=== PATIENT | female | born 1955 | race Caucasian/White ===

== ENCOUNTER → 2016-06-24 | Outpatient (CLI) | payer BC ==
[~2016-06-24] MED LIST: ASPEC81 PO; ATV5 PO; CHOL100010 PO; CHOL100027 PO; CITA40TA4 PO; CYAN500T PO; FIBER PO; LACT1CAP6 PO; LORA-741 PO; METO50TA7 PO; PRLSR20 PO; RANI150T3 PO
--- NOTE | 2016-06-24 17:12 | MAMMOGRAPHY REPORT ---
BILATERAL DIGITAL SCREENING MAMMOGRAM TOMOSYNTHESIS WITH CAD: 06/24/2016 CLINICAL HISTORY: Asymptomatic. Personal history of breast cancer. TECHNIQUE: Breast tomosynthesis in addition to standard 2D mammography was performed. Current study was also evaluated with a Computer Aided Detection (CAD) system. COMPARISON: Comparison is made to exams dated: 06/13/2014 mammogram, 06/19/2015 mammogram, 06/07/2013 m ammogram - [facility], 10/18/2008, 07/31/2009 breast MRI - Outside MRI, and 05/21/2010 mammogram - [facility]. BREAST COMPOSITION: The tissue of both breasts is heterogeneously dense, which may obscure small ma sses. FINDINGS: There is expected architectural distortion at the site of prior lumpectomy in the upper ou ter posterior left breast. There are also benign-appearing calcifications within the left breast. No new suspicious mass, architectural distortion or cluster of microcalcifications is seen. IMPRESSION: ACR BI-RADS CATEGORY 1: NEGATIVE There is no mammographic evidence of malignancy. A 1 year screening mammogram is recommended. The p atient will receive written notification of the results. Approximately 10% of breast cancers are not detected with mammography. A negative mammographic repor t should not delay biopsy if a clinically suggestive mass is present. Julianna Wallace M.D. ay/:06/24/2016 15:29:31 Talent Development Specialist: Marysol JUDD)(Bud), [facility] letter sent: Normal 1/2 BI-RADS Code: ACR BI-RADS Category 1: Negative
== END | disposition home or self-care (01) ==
LOC: C.MAMM 12:53
PROVIDERS: ATTEND Internal Medicine Geriatric Medicine
DX: Z12.31 Encounter for screening mammogram for malignant neoplasm of breast (principal); Z85.3 Personal history of malignant neoplasm of breast; Z08 Encounter for follow-up examination after completed treatment for malignant neoplasm

== ENCOUNTER → 2017-01-14 | Outpatient (CLI) | payer BC ==
[2017-01-14 11:02] LABS: BASO % 1.1 %; BASO ABS # 0.07 K/uL (0-0.2); COMPLETE YES; EOS % 1.5 %; HEMATOCRIT 43.5 % (37-47); IG% 0.6 %; LYMPH % 37.9 %; LYMPH ABS # 2.34 K/uL (1.2-3.4); MEAN CELL VOLUME 89.7 fL (80-100); MEAN CORPUSCULAR HEMOGLOBIN 30.5 pg (25-34); MEAN PLATELET VOLUME 9.8 fL (7.4-10.4); NEUT % 51.9 %; PLATELET COUNT 218 K/uL (130-400); RED BLOOD COUNT 4.85 M/uL (4.2-5.4); WHITE BLOOD COUNT 6.17 K/uL (4.8-10.8)
[2017-01-14 11:45] LABS: ALT/SGPT 20 U/L (12-78); AST/SGOT 12 U/L (15-37); BLOOD UREA NITROGEN 16 mg/dl (7-18); BUN/CREATININE RATIO 17.8 (10-20); CALCIUM 8.8 mg/dl (8.5-10.1); CARBON DIOXIDE 27 mmol/L (21-32); CHLORIDE 105 mmol/L (98-107); GLUCOSE 94 mg/dl (70-99); POTASSIUM 4.3 mmol/L (3.5-5.1); SODIUM 138 mmol/L (136-145)
[2017-01-14 11:56] LABS: ALKALINE PHOSPHATASE 77 U/L (45-117); CHOLESTEROL 254 mg/dl (0-200); CHOLESTEROL/HDL RATIO 3.3; HDL CHOLESTEROL 78 mg/dl; LDL CHOLESTEROL CALCULATED 146 mg/dl; TRIGLYCERIDES 151 mg/dl (0-150); VERY LOW DENSITY LIPOPROT CALC 30 mg/dl
== END | disposition home or self-care (01) ==
LOC: C.LABBC 08:57
PROVIDERS: ATTEND Internal Medicine Geriatric Medicine
DX: Z00.00 Encounter for general adult medical examination without abnormal findings (principal); F41.8 Other specified anxiety disorders; G62.9 Polyneuropathy, unspecified; M47.812 Spondylosis without myelopathy or radiculopathy, cervical region; Z85.3 Personal history of malignant neoplasm of breast

== ENCOUNTER 2017-02-07 14:15 | Observation (INO) | payer BC ==
[~2017-02-07] VITALS: Ht 160 cm; Wt 66.4 kg
[~2017-02-07 14:15] MED LIST changes: -ASPEC81 PO; -CHOL100027 PO; -FIBER PO; -LORA-741 PO; -METO50TA7 PO; -PRLSR20 PO
[2017-02-07] MEDS ORDERED: SODIUM CHLORIDE 0.9% 1000ML 1,000 ML IV STA (14:33)
--- NOTE | 2017-02-07 14:49 | DIAGNOSTIC IMAGING REPORT ---
CHEST ONE VIEW PORTABLE CLINICAL HISTORY: CHEST PAIN dyspnea COMPARISON STUDY: 06/06/2008 FINDINGS: The bones soft tissues and hemidiaphragms are normal. The cardiomediastinal silhouette is normal. The lungs are clear. The pulmonary vasculature is normal. IMPRESSION: Negative chest. The above report was generated using voice recognition software. It may contain grammatical, syntax or spelling errors. Electronically signed by: Dale Giang M.D. 02/07/2017 2:48 PM Dictated Date/Time: 02/07/2017 2:48 PM
[2017-02-07] MEDS ORDERED: THIAMINE HCL 100 MG/ML 2 ML VIAL IV STA (15:00)
[2017-02-07 15:12] LABS: PARTIAL THROMBOPLASTIN RATIO 0.9; PROTHROMBIN TIME (PATIENT) 10.3 SECONDS (9.0-12.0)
[2017-02-07] MEDS ORDERED: FIBER PO (15:18)
[2017-02-07] MEDS ORDERED: LORA-741 PO (15:18)
[2017-02-07] MEDS ORDERED: PRLSR20 PO (15:18)
[2017-02-07] MEDS ORDERED: CHOL100027 PO (15:18)
[2017-02-07 15:19] LABS: BASO % 0.4 %; BASO ABS # 0.03 K/uL (0-0.2); COMPLETE YES; EOS % 1.1 %; HEMATOCRIT 41.5 % (37-47); IG% 0.3 %; LYMPH % 28.1 %; LYMPH ABS # 1.99 K/uL (1.2-3.4); MEAN CELL VOLUME 89.4 fL (80-100); MEAN CORPUSCULAR HEMOGLOBIN 31.3 pg (25-34); MEAN CORPUSCULAR HGB CONC 34.9 g/dl (32-36); MEAN PLATELET VOLUME 9.6 fL (7.4-10.4); MONO % 9.9 %; NEUT % 60.2 %; PLATELET COUNT 187 K/uL (130-400); RED BLOOD COUNT 4.64 M/uL (4.2-5.4); WHITE BLOOD COUNT 7.08 K/uL (4.8-10.8)
[2017-02-07 15:25] LABS: ALT/SGPT 22 U/L (12-78); BLOOD UREA NITROGEN 18 mg/dl (7-18); CALCIUM 9.1 mg/dl (8.5-10.1); CARBON DIOXIDE 25 mmol/L (21-32); CHLORIDE 105 mmol/L (98-107); GLUCOSE 137 mg/dl (70-99); POTASSIUM 4.3 mmol/L (3.5-5.1); SODIUM 140 mmol/L (136-145)
[2017-02-07 15:34] LABS: ALKALINE PHOSPHATASE 83 U/L (45-117); AST/SGOT 19 U/L (15-37); CKMB/CK RATIO 1.2 (0-3.0)
--- NOTE | 2017-02-07 16:02 | EMERGENCY ROOM VISIT NOTE ---
History Report prepared by Will: Viktoria Duran Under the Supervision of: Dr. Gonzalez Gomes D.O. First contact with patient: 14:21 Chief Complaint: CHEST PAIN Stated Complaint: PULSE 148, IRREGULAR, DIZZY,CHEST PAIN Nursing Triage Summary: triage note: Pt reports for the past 30 min she has felt dizzy, nauseated and mid chest pain. pt reports she took her pulse at home and it was 148. History of Present Illness The patient is a 61 year old female who presents to the Emergency Room with complaints of an episode chest pain starting prior to arrival. The patient reports that her day started out relaxing. She reports that while in the kitchen she started to feel her heart racing and a lump in her throat. She states that the episode lasted for half an hour. She reports that she took her blood pressure and pulse. She reports that her blood pressure was normal and that her pulse was 148. She states that she had one episode a few weeks ago where her pulse was 125. She notes when these episodes happen she becomes nauseated, dizzy, and short of breath. The patient denies swelling in legs, vomiting, recent sickness, diarrhea, fevers, cough, and ever having a stress test done before. The patient notes that after the first episode she called her PCP who wanted her to be fitted with a Holter monitor, but couldn't get someone to cover her for work. The patient currently rates her pain as a 6/10 in severity. Source of History: patient Onset: prior to arrival Position: chest Symptom Intensity: 6/10 Quality: other ("heart racing") Timing: other (episode) Associated Symptoms: + SOB, + nausea, No fevers, No cough, No vomiting, No diarrhea Note: The patient complains of feeling like there is a lump in her throat and dizziness. The patient denies recent sickness and swelling in her legs. Review of Systems See HPI for pertinent positives & negatives. A total of 10 systems reviewed and were otherwise negative. Past Medical & Surgical Medical Problems: (1) Acid reflux (2) Anxiety (3) Depression (4) GERD (gastroesophageal reflux disease) (5) Heart disease (6) HX: breast cancer (7) IBS (irritable bowel syndrome) Surgical Problems: (1) History of lumpectomy (2) IBS (irritable bowel syndrome) (3) S/P appendectomy (4) S/P tubal ligation Family History Cancer Hypertension Social History Smoking Status: Never Smoker Alcohol Use: occasionally Marital Status: Housing Status: lives with significant other Occupation Status: employed Current/Historical Medications Scheduled Cholecalciferol (Vitamin D 1000 Unit), 1,000 INTER.UNIT PO DAILY Citalopram (Citalopram Hydrobromide), 40 MG PO HS Cyanocobalamin (Vitamin B-12), 500 MCG PO HS Fiber Laxative (Fiber Laxative), 2 TABS PO HS Lactobacillus (Probiotic), 2 CAP PO HS Omeprazole (Prilosec), 20 MG PO HS Scheduled PRN Lorazepam (Ativan), 0.5 MG PO BID PRN for Anxiety and/or Sedation Allergies Coded Allergies: Buspirone (Verified Allergy, Intermediate, increase heart rate, 02/07/17) Venlafaxine (Verified Allergy, Intermediate, increase blood pressure, 02/07) Meperidine (Verified Allergy, Unknown, 11/10/15) Oxycodone (Verified Allergy, Unknown, 11/10/15) Codeine (Verified Adverse Reaction, Unknown, MAKES NAUSEA, 11/10/15) Physical Exam Vital Signs Date Time Temp Pulse Resp B/P (MAP) Pulse Ox O2 Delivery O2 Flow Rate FiO2 02/07/17 16:02 127/83 02/07/17 16:00 94 25 02/07/17 15:55 93 16 02/07/17 15:50 97 19 02/07/17 15:45 95 16 02/07/17 15:40 94 17 02/07/17 15:35 96 18 02/07/17 15:30 95 18 02/07/17 15:29 96/67 96 Room Air 02/07/17 15:29 85 02/07/17 15:15 141 18 02/07/17 15:10 129 17 02/07/17 15:05 144 18 02/07/17 15:00 145 20 02/07/17 14:58 151 02/07/17 14:55 131 23 02/07/17 14:44 96 Room Air 02/07/17 14:44 96 Room Air 02/07/17 14:44 112/80 02/07/17 14:18 36.5 106 18 118/76 96 Room Air Physical Exam GENERAL: Patient is awake, alert, and in no acute distress. Patient is resting comfortably and showing no signs of anxiety EYES: The conjunctivae are clear. The pupils are round and reactive. EARS, NOSE, MOUTH AND THROAT: The nose is without any evidence of any deformity. Mucous membranes are moist tongue is midline NECK: The neck is nontender and supple. RESPIRATORY: Normal respiratory effort is noted there is no evidence of wheezing rhonchi or rales CARDIOVASCULAR: Regular rate and rhythm noted there no murmurs rubs or gallops normal S1 normal S2 GASTROINTESTINAL: The abdomen is soft. Bowel sounds are present in all quadrants. Abdomen is nontender MUSCULOSKELETAL/EXTREMITIES: There is no evidence of gross deformity full range of motion is noted in the hips and shoulders SKIN: There is no obvious evidence of any rash. There are no petechiae, pallor or cyanosis noted. NEUROLOGIC: Patient is awake alert and oriented x3. Medical Decision & Procedures ER Provider Diagnostic Interpretation: Radiology results as stated below per my review and radiologist interpretation: CHEST ONE VIEW PORTABLE CLINICAL HISTORY: CHEST PAIN dyspnea COMPARISON STUDY: 06/06/2008 FINDINGS: The bones soft tissues and hemidiaphragms are normal. The cardiomediastinal silhouette is normal. The lungs are clear. The pulmonary vasculature is normal. IMPRESSION: Negative chest. The above report was generated using voice recognition software. It may contain grammatical, syntax or spelling errors. Electronically signed by: Dale Giang M.D. 02/07/2017 2:48 PM Dictated Date/Time: 02/07/2017 2:48 PM Laboratory Results 02/07/17 14:45 Red Blood Count 4.64, Mean Corpuscular Volume 89.4, Mean Corpuscular Hemoglobin 31.3, Mean Corpuscular Hemoglobin Concent 34.9, Mean Platelet Volume 9.6, Neutrophils (%) (Auto) 60.2, Lymphocytes (%) (Auto) 28.1, Monocytes (%) (Auto) 9.9, Eosinophils (%) (Auto) 1.1, Basophils (%) (Auto) 0.4, Neutrophils # (Auto) 4.26, Lymphocytes # (Auto) 1.99, Monocytes # (Auto) 0.70, Eosinophils # (Auto) 0.08, Basophils # (Auto) 0.03 02/07/17 14:45 Test 02/07/17 14:45 White Blood Count 7.08 K/uL (4.8-10.8) Red Blood Count 4.64 M/uL (4.2-5.4) Hemoglobin 14.5 g/dL (12.0-16.0) Hematocrit 41.5 % (37-47) Mean Corpuscular Volume 89.4 fL (80-100) Mean Corpuscular Hemoglobin 31.3 pg (25-34) Mean Corpuscular Hemoglobin Concent 34.9 g/dl (32-36) Platelet Count 187 K/uL (130-400) Mean Platelet Volume 9.6 fL (7.4-10.4) Neutrophils (%) (Auto) 60.2 % Lymphocytes (%) (Auto) 28.1 % Monocytes (%) (Auto) 9.9 % Eosinophils (%) (Auto) 1.1 % Basophils (%) (Auto) 0.4 % Neutrophils # (Auto) 4.26 K/uL (1.4-6.5) Lymphocytes # (Auto) 1.99 K/uL (1.2-3.4) Monocytes # (Auto) 0.70 K/uL (0.11-0.59) Eosinophils # (Auto) 0.08 K/uL (0-0.5) Basophils # (Auto) 0.03 K/uL (0-0.2) RDW Standard Deviation 42.3 fL (36.4-46.3) RDW Coefficient of Variation 13.0 % (11.5-14.5) Immature Granulocyte % (Auto) 0.3 % Immature Granulocyte # (Auto) 0.02 K/uL (0.00-0.02) Prothrombin Time 10.3 SECONDS (9.0-12.0) Prothromb Time International Ratio 1.0 (0.9-1.1) Activated Partial Thromboplast Time 24.2 SECONDS (21.0-31.0) Partial Thromboplastin Ratio 0.9 Anion Gap 10.0 mmol/L (3-11) Est Creatinine Clear Calc Drug Dose 46.2 ml/min Estimated GFR () 57.3 Estimated GFR (Non- 49.4 BUN/Creatinine Ratio 15.0 (10-20) Calcium Level 9.1 mg/dl (8.5-10.1) Magnesium Level 2.0 mg/dl (1.8-2.4) Total Bilirubin 0.4 mg/dl (0.2-1) Direct Bilirubin 0.1 mg/dl (0-0.2) Aspartate Amino Transf (AST/SGOT) 19 U/L (15-37) Alanine Aminotransferase (ALT/SGPT) 22 U/L (12-78) Alkaline Phosphatase 83 U/L (45-117) Total Creatine Kinase 130 U/L (26-192) Creatine Kinase MB 1.6 ng/ml (0.5-3.6) Creatine Kinase MB Ratio 1.2 (0-3.0) Troponin I < 0.015 ng/ml (0-0.045) Total Protein 7.5 gm/dl (6.4-8.2) Albumin 3.9 gm/dl (3.4-5.0) Lipase 278 U/L (73-393) Thyroid Stimulating Hormone (TSH) 1.160 uIu/ml (0.300-4.500) Free Thyroxine 0.87 ng/dl (0.80-1.60) Hepatitis C Antibody Screen NEG (NEG) Laboratory results per my review. Medications Administered Medications (Trade) Dose Ordered Sig/Shira Route Start Time Stop Time Status Last Admin Dose Admin Sodium Chloride 1,000 ml @ 999 mls/hr Q1H1M STAT IV 02/07/17 14:33 02/07/17 15:33 DC 02/07/17 14:52 999 MLS/HR Thiamine HCl (Vitamin B-1 Inj) 100 mg NOW STAT IV 02/07/17 15:00 02/07/17 15:01 DC 02/07/17 15:23 100 MG ECG Indication: chest pain Rate (beats per minute): 99 Rhythm: normal sinus Findings: T-wave inversion (Anterior, Lateral), no ectopy Comparison ECG Date: 02/20/2013 Change: T wave inversions are new from the prior. Repeat EKG: Atrial fibrillation with rapid ventricular response, rate 156, diffuse ST and T wave abnormalities noted. Atrial fibrillation new compared to earlier tracing. ED Course 1432: The patient was evaluated in room C6. A complete history and physical examination were performed. 1433: Ordered NSS 1000 ml @ 999 mls/hr IV. 1500: Ordered Thiamine HCl 100 mg IV. 1553: I discussed the patient's case with Dr. Link. The patient will be evaluated for further management. Medical Decision Etiologies such as cardiac ischemia, aortic dissection, pulmonary embolism, pneumonia, pneumothorax, musculoskeletal, infections, pericarditis, myocarditis , esophageal rupture, gastrointestinal, as well as others were entertained. Nursing notes reviewed. The patient is a 61-year-old female who presented to the emergency department for evaluation of palpitations and chest discomfort. The patient was found have T-wave abnormalities in the lateral leads compared to her previous EKG. She also had episodes of atrial fibrillation with rapid ventricular response while she was in the emergency department. The patient was treated with IV fluids in the emergency department. I discussed the patient's laboratory and radiographic studies with her. Given her abnormal EKG I also discussed her case with the on- call [facility] hospitalist. They've agreed to evaluate the patient in the emergency department for further management and disposition. Consults Time Called: 1550 Consulting Physician: Dr. Link Returned Call: [phone] I discussed the patient's case with Dr. Link. The patient will be evaluated for further management. Impression Primary Impression: Heart palpitations Additional Impressions: Rapid atrial fibrillation Abnormal EKG Atrial fibrillation with rapid ventricular response Chest pain Scribe Attestation The scribe's documentation has been prepared under my direction and personally reviewed by me in its entirety. I confirm that the note above accurately reflects all work, treatment, procedures, and medical decision making performed by me. Departure Information Dispostion Being Evaluated By Hospitalist Referrals Juan Dorsey M.D. (PCP) Patient Instructions My [facility] [address] Problem Qualifiers Additional Impressions: Chest pain Chest pain type: unspecified Qualified Codes: R07.9 - Chest pain, unspecified
[2017-02-07] MEDS ORDERED: ONDANSETRON INJ 2 MG/ML 2 ML VIAL IV PRN (16:15)
[2017-02-07] MEDS ORDERED: ACETAMINOPHEN 325 MG TAB PO PRN (16:15)
--- NOTE | 2017-02-07 16:26 | History and Physical ---
History & Physical Date & Time of Service: Feb 07, 2017 at 16:17 Chief Complaint: Pulse 148, Irregular, Dizzy,Chest Pain Primary Care Physician: Juan Dorsey M.D. History of Present Illness Source: patient Pt is a 61 yo female who presents to the ER with complaints of an episode of chest pain starting prior to arrival. Pt has no known medical or cardiac hx. Pt reports she felt her heart racing this and sensation of a lump in her throat. Episode lasted for about an hr. She reports an episode similar to this earlier this month. She notes when these episodes happen she becomes nauseated, dizzy, and short of breath. The patient denies swelling in legs, vomiting, recent sickness, diarrhea, fevers, cough, and ever having a stress test done before. Past Medical/Surgical History Medical Problems: (1) Acid reflux Status: Chronic (2) Anxiety Status: Chronic (3) Depression Status: Chronic (4) Heart disease Status: Chronic Surgical Problems: (1) History of lumpectomy Status: Resolved (2) IBS (irritable bowel syndrome) Status: Chronic (3) S/P appendectomy Status: Resolved (4) S/P tubal ligation Status: Resolved Family History Cancer Hypertension Social History Smoking Status: Never Smoker Smokeless Tobacco Use: No Alcohol Use: socially Drug Use: none Marital Status: Occupational Status: employed Immunizations History of Influenza Vaccine: Yes Influenza Vaccine Date: Feb 15, 2008 History of Tetanus Vaccine?: PT DOES NOT REMEMBER LAST VACCINE DOSE History of Pneumococcal: No History of Hepatitis B Vaccine: PT RECEIVED IN THE -EMPLOYED AT THIS FACILIT Multi-Drug Resistant Organisms History of MDRO: No Allergies Coded Allergies: Buspirone (Verified Allergy, Intermediate, increase heart rate, 02/07/17) Venlafaxine (Verified Allergy, Intermediate, increase blood pressure, 02/07) Meperidine (Verified Allergy, Unknown, 11/10/15) Oxycodone (Verified Allergy, Unknown, 11/10/15) Codeine (Verified Adverse Reaction, Unknown, MAKES NAUSEA, 11/10/15) Home Medications Scheduled Cholecalciferol (Vitamin D 1000 Unit), 1,000 INTER.UNIT PO DAILY Citalopram (Citalopram Hydrobromide), 40 MG PO HS Cyanocobalamin (Vitamin B-12), 500 MCG PO HS Fiber Laxative (Fiber Laxative), 2 TABS PO HS Lactobacillus (Probiotic), 2 CAP PO HS Omeprazole (Prilosec), 20 MG PO HS Scheduled PRN Lorazepam (Ativan), 0.5 MG PO BID PRN for Anxiety and/or Sedation Review of Systems Constitutional: No fever, No chills, No sweats, No weight loss, No weakness Respiratory: No cough, No sputum, No wheezing, No shortness of breath, No dyspnea on exertion Cardiovascular: No chest pain, No orthopnea, No PND, No edema Abdomen: No pain, No nausea, No vomiting, No diarrhea Musculoskeletal: No joint pain, No muscle pain, No swelling, No calf pain Genitourinary - Female: No dysuria, No urinary frequency, No urinary urgency, No urinary incontinence Neurologic: No memory loss, No paralysis, No weakness, No numbness/tingling Psychiatric: No depression symptoms, No anhedonism, No anxiety, No insomnia Endocrine: No fatigue, No excessive thirst Integumentary: No rash, No itch Physical Exam Vital Signs Date Time Temp Pulse Resp B/P (MAP) Pulse Ox O2 Delivery O2 Flow Rate FiO2 02/07/17 16:02 127/83 02/07/17 16:00 94 25 02/07/17 15:55 93 16 02/07/17 15:50 97 19 02/07/17 15:45 95 16 02/07/17 15:40 94 17 02/07/17 15:35 96 18 02/07/17 15:30 95 18 02/07/17 15:29 96/67 96 Room Air 02/07/17 15:29 85 02/07/17 15:15 141 18 02/07/17 15:10 129 17 02/07/17 15:05 144 18 02/07/17 15:00 145 20 02/07/17 14:58 151 02/07/17 14:55 131 23 02/07/17 14:44 96 Room Air 02/07/17 14:44 96 Room Air 02/07/17 14:44 112/80 02/07/17 14:18 36.5 106 18 118/76 96 Room Air General Appearance: WD/WN, no apparent distress Head: normocephalic, atraumatic Eyes: normal inspection, PERRL, EOMI, sclerae normal Neck: supple, no adenopathy, thyroid normal, no JVD Respiratory/Chest: chest non-tender, lungs clear, normal breath sounds, no respiratory distress Cardiovascular: no edema, no gallop, no JVD, + tachycardia Abdomen/GI: normal bowel sounds, non tender, soft, no organomegaly Back: normal inspection, no CVA tenderness, no muscle spasm, normal range of motion Extremities/Musculoskelatal: normal inspection, no calf tenderness, normal capillary refill, no pedal edema Neurologic/Psych: no motor/sensory deficits, alert, normal mood/affect, normal reflexes, oriented x 3 Skin: normal color, warm/dry, no rash Lymphatic: no adenopathy Diagnostics Laboratory Results Results Past 24 Hours Test 02/07/17 14:45 Range/Units White Blood Count 7.08 4.8-10.8 K/uL Red Blood Count 4.64 4.2-5.4 M/uL Hemoglobin 14.5 12.0-16.0 g/dL Hematocrit 41.5 37-47 % Mean Corpuscular Volume 89.4 80-100 fL Mean Corpuscular Hemoglobin 31.3 25-34 pg Mean Corpuscular Hemoglobin Concent 34.9 32-36 g/dl Platelet Count 187 130-400 K/uL Mean Platelet Volume 9.6 7.4-10.4 fL Neutrophils (%) (Auto) 60.2 % Lymphocytes (%) (Auto) 28.1 % Monocytes (%) (Auto) 9.9 % Eosinophils (%) (Auto) 1.1 % Basophils (%) (Auto) 0.4 % Neutrophils # (Auto) 4.26 1.4-6.5 K/uL Lymphocytes # (Auto) 1.99 1.2-3.4 K/uL Monocytes # (Auto) 0.70 0.11-0.59 K/uL Eosinophils # (Auto) 0.08 0-0.5 K/uL Basophils # (Auto) 0.03 0-0.2 K/uL RDW Standard Deviation 42.3 36.4-46.3 fL RDW Coefficient of Variation 13.0 11.5-14.5 % Immature Granulocyte % (Auto) 0.3 % Immature Granulocyte # (Auto) 0.02 0.00-0.02 K/uL Prothrombin Time 10.3 9.0-12.0 SECONDS Prothromb Time International Ratio 1.0 0.9-1.1 Activated Partial Thromboplast Time 24.2 21.0-31.0 SECONDS Partial Thromboplastin Ratio 0.9 Sodium Level 140 136-145 mmol/L Potassium Level 4.3 3.5-5.1 mmol/L Chloride Level 105 98-107 mmol/L Carbon Dioxide Level 25 21-32 mmol/L Anion Gap 10.0 3-11 mmol/L Blood Urea Nitrogen 18 7-18 mg/dl Creatinine 1.20 0.60-1.20 mg/dl Est Creatinine Clear Calc Drug Dose 46.2 ml/min Estimated GFR () 57.3 Estimated GFR (Non- 49.4 BUN/Creatinine Ratio 15.0 10-20 Random Glucose 137 70-99 mg/dl Calcium Level 9.1 8.5-10.1 mg/dl Magnesium Level 2.0 1.8-2.4 mg/dl Total Bilirubin 0.4 0.2-1 mg/dl Direct Bilirubin 0.1 0-0.2 mg/dl Aspartate Amino Transf (AST/SGOT) 19 15-37 U/L Alanine Aminotransferase (ALT/SGPT) 22 12-78 U/L Alkaline Phosphatase 83 45-117 U/L Total Creatine Kinase 130 26-192 U/L Creatine Kinase MB 1.6 0.5-3.6 ng/ml Creatine Kinase MB Ratio 1.2 0-3.0 Troponin I < 0.015 0-0.045 ng/ml Total Protein 7.5 6.4-8.2 gm/dl Albumin 3.9 3.4-5.0 gm/dl Lipase 278 73-393 U/L Thyroid Stimulating Hormone (TSH) 1.160 0.300-4.500 uIu/ml Free Thyroxine 0.87 0.80-1.60 ng/dl Impression Assessment and Plan Pt is a 61 yo female with episode of chest discomfort this afternoon and found to be in atrial fibrillation in ER New onset atrial fibrillation Pt reports stress from work, no heavy drinking hx, Mg and TSH WNL Currently in NSR Will place on observation in telemetry Will pace on ASA at this time Will obtain ECHO Cardiology consulted Hx of mitral valve prolapse Hx of breast cancer DVT ppx with lovenox VTE Prophylaxis VTE Risk Assessment Done? Y/N: Yes Risk Level: Moderate
[2017-02-07 16:28] VITALS: O2SAT 96; Ht 160 cm; Wt 66.4 kg
[2017-02-07] MEDS ORDERED: IV FLUIDS COMPLETED PRN (17:00)
[2017-02-07 19:15] VITALS: BP 121/69; PULSE 72; TEMP 36.7; O2SAT 97
[2017-02-07] MEDS ORDERED: NURSING VERBAL MED ORDER ONE ×2 (19:30→20:30)
[2017-02-07 19:38] VITALS: BP 124/73; PULSE 75; TEMP 36.5; O2SAT 95
[2017-02-07] MEDS ORDERED: LORAZEPAM 1 MG TAB PO PRN (20:30)
[2017-02-07] MEDS ORDERED: ENOXAPARIN 40 MG/0.4 ML SYR SC SCH (21:00)
[2017-02-07] MEDS ORDERED: CITALOPRAM 40 MG TAB PO SCH (21:00)
[2017-02-07] MEDS ORDERED: LACTOBACILLUS ACIDOPHILUS (FLORANEX) TAB PO SCH (21:00)
[2017-02-07] MEDS: LORAZEPAM 0.5 MG TAB PO PRN (21:20)
[2017-02-07] MEDS: SODIUM CHLORIDE 0.9% 1000ML 1,000 ML IV SCH (21:20)
[2017-02-07 23:58] VITALS: BP 119/69; PULSE 77; TEMP 36.5; O2SAT 95
[2017-02-08] VITALS (9 sets, daily range): BP systolic 127–142; BP diastolic 73–85; PULSE 73–80; TEMP 36.5–37.1; O2SAT 95–98
[2017-02-08 06:34] LABS: BLOOD UREA NITROGEN 18 mg/dl (7-18); BUN/CREATININE RATIO 19.3 (10-20); CALCIUM 8.3 mg/dl (8.5-10.1); CARBON DIOXIDE 25 mmol/L (21-32); CHLORIDE 110 mmol/L (98-107); CREATININE 0.93 mg/dl (0.60-1.20); GLUCOSE 100 mg/dl (70-99); POTASSIUM 3.8 mmol/L (3.5-5.1); SODIUM 142 mmol/L (136-145)
[2017-02-08] MEDS ORDERED: CHOLECALCIFEROL 1000 INTER.UNIT TAB PO SCH (09:00)
[2017-02-08] MEDS ORDERED: ASPIRIN 81 MG ECTAB PO SCH (09:00)
[2017-02-08] MEDS: LORAZEPAM 0.5 MG TAB PO PRN (09:26)
[2017-02-08] MEDS: SODIUM CHLORIDE 0.9% 1000ML 1,000 ML IV SCH (11:19)
--- NOTE | 2017-02-08 14:17 | ECHOCARDIOGRAM REPORT ---
*NOTICE TO RECEIVING [employer] This information is strictly Confidential and protected under [place] law. [place] law prohibits you from making any further disclosure of this information unless further disclosure is expressly permitted by the written consent of the person to whom it pertains or is authorized by law. A general authorization for the release of medical or other information is not sufficient for this purpose. Hospital accepts no responsibility if the information is made available to any other person, INCLUDING THE PATIENT. Interpretation Summary * Name: ANGELIC EMMANUEL Study Date: 02/08/2017 06:27 AM BP: 127/73 mmHg * Patient Location: HR: 73 * : 1955 (M/d/yyyy) Gender: Female Height: 63 in * Age: 61 yrs Ethnicity: CA Weight: 146 lb * Ordering Physician: Oliverio Link * Performed By: Keara Braxton * * Reason For Study: A-FIB * BSA: 1.7 m2 * -- Conclusions -- * 1. Normal LV size and wall thickness. * 2. Normal LV systolic function. LVEF 55-60%. No regional wall motion abnormalities. * 3. Normal RV size and function. * 4. Mild left atrial enlargement. * 5. Mild mitral regurgitation. * 6. Normal estimated CVP. * 7. No prior studies for comparison. Procedure Details * A complete two-dimensional transthoracic echocardiogram was performed (2D, M-mode, Doppler and color flow Doppler). Left Ventricle * The left ventricle is grossly normal size. * There is normal left ventricular wall thickness. * Ejection Fraction = 55-60%. * No regional wall motion abnormalities noted. Right Ventricle * The right ventricle is grossly normal size. * The right ventricular systolic function is normal as assessed by tricuspid annular plane systolic excursion (TAPSE) (normal >1.5 cm). Atria * The left atrium is mildly dilated. * Right atrial size is normal. * No ASD detected; PFO is not assessed. Mitral Valve * The mitral valve is grossly normal. * Mitral stenosis is absent. * There is mild mitral regurgitation. Tricuspid Valve * The tricuspid valve is not well visualized, but is grossly normal. * There is no tricuspid stenosis. * Significant tricuspid regurgitation is absent. Aortic Valve * The aortic valve opens well. * The aortic valve is tricuspid. The leaflet thickness if normal. There is no aortic stenosis, and no significant insufficiency. * No hemodynamically significant valvular aortic stenosis. * There is no significant aortic regurgitation. Pulmonic Valve * The pulmonary valve is inadequately visualized, but the Doppler data is adequate for interpretation. * There is no pulmonic valvular stenosis. * Trace pulmonic valvular regurgitation. Great Vessels * The aortic root and proximal ascending aorta are normal sized. Pericardium/Pleural * There is no pericardial effusion. Great Vessels * Normal inferior vena cava size and collapsability with sniff indicates a normal right atrial pressure of 3 mmHg MMode 2D Measurements and Calculations IVSd 1.1 cm IVSs 1.4 cm LVIDd 4.4 cm LVIDs 3.1 cm LVPWd 0.88 cm LVPWs 1.5 cm IVS/LVPW 1.2 FS 30.2 % EDV(Teich) 89.4 ml ESV(Teich) 37.9 ml EF(Teich) 57.6 % EDV(cubed) 87.3 ml ESV(cubed) 29.7 ml EF(cubed) 65.9 % % IVS thick 29.8 % % LVPW thick 75.6 % LV mass(C)d 143.8 grams LV mass(C)dI 85.0 grams/m\S\2 LV mass(C)s 157.6 grams LV mass(C)sI 93.2 grams/m\S\2 SV(Teich) 51.5 ml SI(Teich) 30.5 ml/m\S\2 SV(cubed) 57.5 ml SI(cubed) 34.0 ml/m\S\2 ACS 1.6 cm LA dimension 3.0 cm asc Aorta Diam 2.7 cm LVOT diam 1.9 cm LVOT area 2.8 cm\S\2 LVAd ap4 25.5 cm\S\2 LVLd ap4 7.4 cm EDV(MOD-sp4) 72.4 ml EDV(sp4-el) 73.9 ml LVAs ap4 15.3 cm\S\2 LVLs ap4 6.3 cm ESV(MOD-sp4) 30.4 ml ESV(sp4-el) 31.3 ml EF(MOD-sp4) 58.0 % EF(sp4-el) 57.6 % LVAd ap2 22.4 cm\S\2 LVLd ap2 6.8 cm EDV(MOD-sp2) 62.2 ml EDV(sp2-el) 62.8 ml LVAs ap2 12.5 cm\S\2 LVLs ap2 5.2 cm ESV(MOD-sp2) 26.3 ml ESV(sp2-el) 25.5 ml EF(MOD-sp2) 57.6 % EF(sp2-el) 59.5 % LVLd %diff -100 % EDV(MOD-bp) 70.7 ml LVLs %diff -22.75 % ESV(MOD-bp) 31.7 ml EF(MOD-bp) 55.2 % SV(MOD-sp4) 42.0 ml SI(MOD-sp4) 24.8 ml/m\S\2 SV(MOD-sp2) 35.8 ml SI(MOD-sp2) 21.2 ml/m\S\2 SV(MOD-bp) 39.0 ml SI(MOD-bp) 23.1 ml/m\S\2 SV(sp4-el) 42.6 ml SI(sp4-el) 25.2 ml/m\S\2 SV(sp2-el) 37.3 ml SI(sp2-el) 22.1 ml/m\S\2 Doppler Measurements and Calculations MV E max sabi 80.0 cm/sec MV A max sabi 47.6 cm/sec MV E/A 1.7 MV dec time 0.14 sec Ao V2 max 112.6 cm/sec Ao max PG 5.1 mmHg Ao max PG (full) 2.6 mmHg HARPREET(V,A) 2.0 cm\S\2 HARPREET(V,D) 2.0 cm\S\2 LV V1 max PG 2.5 mmHg LV V1 max 79.3 cm/sec MR max sabi 402.2 cm/sec MR max PG 65.1 mmHg PA V2 max 48.7 cm/sec PA max PG 0.95 mmHg PI end-d sabi 54.4 cm/sec TR max sabi 175.1 cm/sec
[2017-02-08] MEDS ORDERED: ASPEC81 PO (15:11)
[2017-02-08] MEDS ORDERED: METO50TA7 PO (15:11)
--- NOTE | 2017-02-08 15:18 | Discharge Instructions ---
Discharge Instructions Date of Service Feb 08, 2017. Admission Reason for Admission: Rapid Atrial Fibrillation Discharge Discharge Diagnosis / Problem: Rapid atrial fibrillation Discharge Goals Goal(s): Decrease discomfort, Improve disease control, Learn about illness, Diagnostic testing, Therapeutic intervention, Prevent Disease Progression Activity Recommendations Activity Limitations: resume your previous activity . Instructions / Follow-Up Instructions / Follow-Up You were admitted to [facility] due to a racing heart. You were found to be in atrial fibrillation (irregular heart beat) with RVR (fast heart rate). New medications: Toprol XL 25 mg by mouth once daily- this medication is used to keep your heart rate from going too fast Aspirin 81 mg by mouth daily- this is to prevent strokes (having a.fib puts you at risk) Continue all other regular home medications as prescribed Please follow-up with your PCP within 5-7 days- A referral has been placed; if you do not hear of an appointment in the next 24 hours, please call the office to confirm appointment. Please follow-up with Cardiology within 1 month- A referral has been placed; if you do not hear of an appointment in the next 24 hours, please call the office to confirm appointment. Please follow-up/keep all of your subspecialty appointments. Current Hospital Diet Patient's current hospital diet: Regular Diet Discharge Diet Recommended Diet: Regular Diet Procedures Procedures Performed: ECHOCARDIOGRAM Pending Studies Studies pending at discharge: no Laboratory Results Lipid Panel Test 01/14/17 09:02 Range/Units Triglycerides Level 151 H 0-150 mg/dl Cholesterol Level 254 H 0-200 mg/dl HDL Cholesterol 78 mg/dl Cholesterol/HDL Ratio 3.3 LDL Cholesterol, Calculated 146 mg/dl Medical Emergencies . Who to Call and When: Medical Emergencies: If at any time you feel your situation is an emergency, please call 911 immediately. . Non-Emergent Contact Non-Emergency issues call your: Primary Care Provider Call Non-Emergent contact if: you have a fever, your pain is not controlled, your pain is worsening, your pain is unusual for you, your pain is concerning you, you have any medication questions . . "Provider Documentation" section prepared by Chaparrita Cobb. . VTE Core Measure Inpt VTE Proph given/why not?: Enoxaparin (Lovenox)SQ
--- NOTE | 2017-02-08 15:30 | Discharge Summary ---
Discharge Summary Date of Service Feb 08, 2017. (Chaparrita Cobb, ELLIE) Discharge Summary Admission Date: Feb 07, 2017 at 16:14 Discharge Date: Feb 08, 2017 Discharge Disposition: Home Principal Diagnosis: A.fib with RVR Problems/Secondary Diagnoses: Anxiety depression h/o mitral valve prolapse h/o breast cancer GERD Immunizations: Have You Had Influenza Vaccine: Yes Influenza Vaccine Date: Feb 15, 2008 History of Tetanus Vaccine?: PT DOES NOT REMEMBER LAST VACCINE DOSE History of Pneumococcal: No History of Hepatitis B Vaccine: PT RECEIVED IN THE -EMPLOYED AT THIS FACILIT Procedures: ECHOCARDIOGRAM: Interpretation Summary * Name: ANGELIC EMMANUEL Study Date: 02/08/2017 06:27 AM BP: 127/73 mmHg * Patient Location: [facility] HR: 73 * : 1955 (M/d/yyyy) Gender: Female Height: 63 in * Age: 61 yrs Ethnicity: CA Weight: 146 lb * Ordering Physician: Oliverio Link * Performed By: Keara Braxton * * Reason For Study: A-FIB * BSA: 1.7 m2 * -- Conclusions -- * 1. Normal LV size and wall thickness. * 2. Normal LV systolic function. LVEF 55-60%. No regional wall motion abnormalities. * 3. Normal RV size and function. * 4. Mild left atrial enlargement. * 5. Mild mitral regurgitation. * 6. Normal estimated CVP. * 7. No prior studies for comparison. Procedure Details * A complete two-dimensional transthoracic echocardiogram was performed (2D, M-mode, Doppler and color flow Doppler). Left Ventricle * The left ventricle is grossly normal size. * There is normal left ventricular wall thickness. * Ejection Fraction = 55-60%. * No regional wall motion abnormalities noted. Right Ventricle * The right ventricle is grossly normal size. * The right ventricular systolic function is normal as assessed by tricuspid annular plane systolic excursion (TAPSE) (normal >1.5 cm). Atria * The left atrium is mildly dilated. * Right atrial size is normal. * No ASD detected; PFO is not assessed. Mitral Valve * The mitral valve is grossly normal. * Mitral stenosis is absent. * There is mild mitral regurgitation. Tricuspid Valve * The tricuspid valve is not well visualized, but is grossly normal. * There is no tricuspid stenosis. * Significant tricuspid regurgitation is absent. Aortic Valve * The aortic valve opens well. * The aortic valve is tricuspid. The leaflet thickness if normal. There is no aortic stenosis, and no significant insufficiency. * No hemodynamically significant valvular aortic stenosis. * There is no significant aortic regurgitation. Pulmonic Valve * The pulmonary valve is inadequately visualized, but the Doppler data is adequate for interpretation. * There is no pulmonic valvular stenosis. * Trace pulmonic valvular regurgitation. Great Vessels * The aortic root and proximal ascending aorta are normal sized. Pericardium/Pleural * There is no pericardial effusion. Great Vessels * Normal inferior vena cava size and collapsability with sniff indicates a normal right atrial pressure of 3 mmHg CHEST ONE VIEW PORTABLE CLINICAL HISTORY: CHEST PAIN dyspnea COMPARISON STUDY: 06/06/2008 FINDINGS: The bones soft tissues and hemidiaphragms are normal. The cardiomediastinal silhouette is normal. The lungs are clear. The pulmonary vasculature is normal. IMPRESSION: Negative chest. The above report was generated using voice recognition software. It may contain grammatical, syntax or spelling errors. Electronically signed by: Dale Giang M.D. 02/07/2017 2:48 PM Dictated Date/Time: 02/07/2017 2:48 PM The status of this report is Signed. Draft = Not yet reviewed or approved by Radiologist. Signed = Reviewed and approved by Radiologist. Consultations: Cardiology (Chaparrita Cobb, ELLIE) Medication Reconciliation New Medications: Metoprolol Succ (Toprol Xl) (Toprol-Xl) 50 Mg Tabcr 25 MG PO DAILY for 30 Days, #15 TAB Aspirin (Aspirin EC Low Dose) 81 Mg Ectab 81 MG PO QAM for 30 Days Continued Medications: Cholecalciferol (Vitamin D 1000 Unit) 1,000 Unit Cap 1000 INTER.UNIT PO DAILY, CAP Citalopram (Citalopram Hydrobromide) 40 Mg Tab 40 MG PO HS Cyanocobalamin (Vitamin B-12) 500 Mcg Tab 500 MCG PO HS, TAB Fiber Laxative (Fiber Laxative) Ea 2 TABS PO HS Lactobacillus (Probiotic) 1 Cap Cap 2 CAP PO HS Lorazepam (Ativan) 0.5 Mg Tab 0.5 MG PO BID PRN for Anxiety and/or Sedation, TAB Omeprazole (Prilosec) 20 Mg Capcr 20 MG PO HS, CAP Discharge Exam Review of Systems: Constitutional: No fever, No chills, No sweats, No weakness, No fatigue Respiratory: No cough, No shortness of breath, No hemoptysis Cardiovascular: No chest pain, No edema, No palpitations Abdomen: No pain, No nausea, No vomiting, No diarrhea, No constipation Musculoskeletal: No joint pain, No muscle pain, No swelling, No calf pain Genitourinary - Female: No dysuria, No hematuria Neurologic: No memory loss, No numbness/tingling Psychiatric: No depression symptoms, No anxiety Endocrine: No fatigue Hematologic / Lymphatic: No abnormal bleeding/bruising, No clotting problems , No swollen lymph nodes Physical Exam: General Appearance: no apparent distress Eyes: normal inspection, PERRL ENT: hearing grossly normal Neck: supple Respiratory/Chest: lungs clear, no respiratory distress, no accessory muscle use Cardiovascular: regular rate, rhythm Abdomen / GI: normal bowel sounds, non tender, soft Extremities: no calf tenderness, no pedal edema Neurologic/Psychiatric: alert, normal mood/affect, oriented x 3 Skin: normal color, warm/dry, no rash (Chaparrita Cobb, ELLIE) Hospital Course Admission H&P: Pt is a 61 yo female who presents to the ER with complaints of an episode of chest pain starting prior to arrival. Pt has no known medical or cardiac hx. Pt reports she felt her heart racing this and sensation of a lump in her throat. Episode lasted for about an hr. She reports an episode similar to this earlier this month. She notes when these episodes happen she becomes nauseated, dizzy, and short of breath. The patient denies swelling in legs, vomiting, recent sickness, diarrhea, fevers, cough, and ever having a stress test done before. Physical Exam Vital Signs Date Time Temp Pulse Resp B/P (MAP) Pulse Ox O2 Delivery O2 Flow Rate FiO2 02/07/17 16:02 127/83 02/07/17 16:00 94 25 02/07/17 15:55 93 16 02/07/17 15:50 97 19 02/07/17 15:45 95 16 02/07/17 15:40 94 17 02/07/17 15:35 96 18 02/07/17 15:30 95 18 02/07/17 15:29 96/67 96 Room Air 02/07/17 15:29 85 02/07/17 15:15 141 18 02/07/17 15:10 129 17 02/07/17 15:05 144 18 02/07/17 15:00 145 20 02/07/17 14:58 151 02/07/17 14:55 131 23 02/07/17 14:44 96 Room Air 02/07/17 14:44 96 Room Air 02/07/17 14:44 112/80 02/07/17 14:18 36.5 106 18 118/76 96 Room Air General Appearance: WD/WN, no apparent distress Head: normocephalic, atraumatic Eyes: normal inspection, PERRL, EOMI, sclerae normal Neck: supple, no adenopathy, thyroid normal, no JVD Respiratory/Chest: chest non-tender, lungs clear, normal breath sounds, no respiratory distress Cardiovascular: no edema, no gallop, no JVD, + tachycardia Abdomen/GI: normal bowel sounds, non tender, soft, no organomegaly Back: normal inspection, no CVA tenderness, no muscle spasm, normal range of motion Extremities/Musculoskelatal: normal inspection, no calf tenderness, normal capillary refill, no pedal edema Neurologic/Psych: no motor/sensory deficits, alert, normal mood/affect, normal reflexes, oriented x 3 Skin: normal color, warm/dry, no rash Lymphatic: no adenopathy Hospital Course: Pt is a 61 yo female with episode of chest discomfort this afternoon and found to be in atrial fibrillation in ER New onset atrial fibrillation: - Admitted to [facility] for cardiac monitoring- no acute events - Trended cardiac enzymes- negative - ECHO: 1. Normal LV size and wall thickness. 2. Normal LV systolic function. LVEF 55-60%. No regional wall motion abnormalities. 3. Normal RV size and function. 4. Mild left atrial enlargement. 5. Mild mitral regurgitation. 6. Normal estimated CVP. - TSH WNL - Consulted cardiology, appreciate recommendations -- Stable for discharge- recommend Toprol XL and ASA at discharge and f/u outpatient Anxiety/depression: Continue Ativan and Citalopram h/o mitral valve prolapse- noted h/o breast cancer- noted GERD: Resume Prilosec at discharge DVT prophylaxis: Lovenox SQ daily Dispo: Discharge to home Total Time Spent: Greater than 30 minutes This includes examination of the patient, discharge planning, medication reconciliation, and communication with other providers. (Chaparrita Cobb, TOYC) Discharge Instructions Please refer to the electronic Patient Visit Report (Discharge Instructions) for additional information. (Chaparrita Cobb, TOYC) Follow-Up Please follow-up with your PCP within 5-7 days Please follow-up with Cardiology within 1 month Please follow-up/keep all of your subspecialty appointments (Chaparrita Cobb, JOSÉ-C) I agree with the above discharge summary. I examined patient and discussed case and discharge plan with APC. My physical exam did not vary from Chaparrita's. (Arthur Valenzuela M.D.) Additional Copies To Juan Dorsey M.D.
--- NOTE | 2017-02-08 22:33 | CARDIOLOGY CONSULTATION ---
DATE OF CONSULTATION: 02/08/2017 CONSULTATION REQUESTED BY: Dr. Link. REASON FOR CONSULTATION: New onset atrial fibrillation. HISTORY OF PRESENT ILLNESS: Ms. Guerrero is a very pleasant 61-year-old woman who was admitted yesterday in the setting of palpitations, chest pain and found to be in new onset atrial fibrillation with RVR. Cardiology consulted for additional management. The patient has no prior cardiac history. She endorses one prior episode of palpitations, chest tightness occurring approximately 2-3 weeks ago while she was at work. Most recent episode occurred the day of admission she was at rest planning her grocery list when all of sudden she developed palpitations radiating up into her neck with associated chest pain, shortness of breath. Symptoms lasted for approximately an hour and a half before she contacted EMS who brought to the Emergency Department. Upon arrival, initial EKG showed sinus rhythm with ventricular rate of approximately 100 and subsequent EKG showed atrial fibrillation with RVR with ventricular rate up into the 150s. She received IV fluids and thiamine and eventually converted to normal sinus rhythm at approximately 3:00 p.m. yesterday. She has remained in sinus rhythm since that time and has had no recurrence of symptoms. The patient denies any significant alcohol or drug use. Drinks 1 cup of coffee daily. Denies any recent infection symptoms. Has does state that things have been very stressful at her work over the last month or so. PAST MEDICAL HISTORY: 1. GERD. 2. Anxiety. 3. Spastic colon/irritable bowel syndrome. PAST SURGICAL HISTORY: 1. History of lumpectomy for breast cancer status post chemo/radiation 10 years ago. 2. Status post appendectomy. 3. Tubal ligation. FAMILY HISTORY: No family history of premature coronary disease or sudden cardiac . SOCIAL HISTORY: She is a lifelong nonsmoker. Drinks socially. Denies any other drugs. She is . Her daughter works at [employer]. She is employed at [employer]. ALLERGIES: ALLERGIC TO BUSPIRONE, VENLAFAXINE, MEPERIDINE, OXYCODONE AND CODEINE. HOME MEDICATIONS: Include cholecalciferol, citalopram, vitamin B12, fiber laxative, lactobacillus, and omeprazole. REVIEW OF SYSTEMS: A 10-point review of systems completed and otherwise negative unless stated in HPI. PHYSICAL EXAMINATION: VITAL SIGNS: Temperature 36.6, pulse 77, blood pressure 141/85. Satting 96% on room air. GENERAL: The patient appears comfortable in no acute distress. HEENT: Sclerae are anicteric. Oropharynx is clear. Mucous membranes moist. NECK: Supple with no lymphadenopathy. LUNGS: Clear to auscultation bilaterally. HEART: Regular rate and rhythm with a faint 2/6 systolic ejection murmur heard best at the apex. ABDOMEN: Soft, nontender, nondistended, positive bowel sounds. EXTREMITIES: Warm. She has no significant lower extremity edema. She has intact distal pulses. SKIN: Shows no rashes or lesions. NEUROLOGIC: Nonfocal was. PSYCHIATRIC: She is alert, oriented and appropriate. LABORATORY DATA: White blood cell count was 7, hemoglobin of 14.5, platelets of 187. Sodium 142, potassium 3.8, BUN 18, creatinine 0.9. Troponins were negative x3. TSH was within normal limits. LFTs were within normal limits. Chest x-ray showed no acute cardiopulmonary process. A subsequent EKG this morning showed normal sinus rhythm with no significant ST abnormalities. Echocardiogram today showed normal LV function, EF 55-60%. Normal RV function and she had mild left atrial enlargement with mild mitral regurgitation. IMPRESSION AND PLAN: 1. New onset atrial fibrillation. 2. Mild mitral regurgitation. 3. Anxiety. 4. Irritable bowel syndrome/gastroesophageal reflux disease. The patient with a newly diagnosed paroxysmal atrial fibrillation with rapid ventricular response with heart rates up to the 160s. She converted to normal sinus rhythm yesterday without any intervention. She has remained in normal sinus rhythm since. No clear reversible triggers for current episode other than significant stress at her current work. I had a long discussion with the patient regarding nature of atrial fibrillation and options for treatment. At this time, I recommend suppression with AV asha agents with plan to start on Toprol-XL 25 mg daily. In regards to anticoagulation, the patient's CHADS2-VASc score is 1 suggesting low risk for CVA. In that setting, would recommend aspirin alone which patient was in agreement with. We will have the patient followup with cardiology clinic in the next 3-4 weeks. Thank you for allowing us to participate in the care of this patient. Please contact with any questions. JULIOCESAR
== END 2017-02-08 17:54 | disposition home or self-care (01) ==
LOC: C.EDB 14:16 → C.2E 16:14 → ENRESERV 17:08
PROVIDERS: ADMIT Hospitalist; ATTEND Hospitalist
DX: I48.91 Unspecified atrial fibrillation (principal); R94.31 Abnormal electrocardiogram [ECG] [EKG]; F32.9 Major depressive disorder, single episode, unspecified; I34.1 Nonrheumatic mitral (valve) prolapse; Z85.3 Personal history of malignant neoplasm of breast; K21.9 Gastro-esophageal reflux disease without esophagitis; K58.9 Irritable bowel syndrome, unspecified; Z90.49 Acquired absence of other specified parts of digestive tract; Z82.49 Family history of ischemic heart disease and other diseases of the circulatory system

== ENCOUNTER → 2017-06-30 | Outpatient (CLI) | payer OTHER ==
[~2017-06-30] MED LIST changes: +ASPEC81 PO; -ATV5 PO; -CHOL100010 PO; +CHOL100027 PO; +FIBER PO; +LORA-741 PO; +PRLSR20 PO; -RANI150T3 PO
--- NOTE | 2017-06-30 15:23 | MAMMOGRAPHY REPORT ---
BILATERAL DIGITAL SCREENING MAMMOGRAM TOMOSYNTHESIS WITH CAD: 06/30/2017 CLINICAL HISTORY: Asymptomatic. Personal history of breast cancer. TECHNIQUE: Breast tomosynthesis in addition to standard 2D mammography was performed. Current study was also evaluated with a Computer Aided Detection (CAD) system. COMPARISON: Comparison is made to exams dated: 06/24/2016 mammogram, 06/19/2015 mammogram, 06/13/2014 juan carlos mogram, 06/07/2013 mammogram, 05/21/2010 mammogram - [facility], and 07/31/2009 breast MRI - Outside MRI. BREAST COMPOSITION: The tissue of both breasts is heterogeneously dense, which may obscure small mas ses. FINDINGS: There is stable expected architectural distortion and surgical clips in the upper outer pos terior left breast, at the site of prior lumpectomy. There is stable asymmetry in the medial right b reast. No obvious new mass, architectural distortion or cluster of suspicious microcalcifications is seen. IMPRESSION: ACR BI-RADS CATEGORY 1: NEGATIVE There is no mammographic evidence of malignancy. A 1 year screening mammogram is recommended. The pa tient will receive written notification of the results. Approximately 10% of breast cancers are not detected with mammography. A negative mammographic report should not delay biopsy if a clinically suggestive mass is present. Julianna Wallace M.D. ay/:06/30/2017 13:17:28 [employer] Supervisor: Jennie MOLINA (R)(Bud), [facility] letter sent: Normal 1/2 BI-RADS Code: ACR BI-RADS Category 1: Negative
== END | disposition home or self-care (01) ==
LOC: C.MAMM 12:50
PROVIDERS: ATTEND Internal Medicine Geriatric Medicine
DX: Z12.31 Encounter for screening mammogram for malignant neoplasm of breast (principal); Z85.3 Personal history of malignant neoplasm of breast

== ENCOUNTER 2025-01-21 15:08 | Observation (INO) ==
--- NOTE | 2025-01-21 15:41 | Emergency Department Note ---
Impression & Plan Syncope and collapse, Dizziness, Abnormal gait ED Provider Note HISTORY OF PRESENT ILLNESS: Patient is a 69-year-old female presenting with dizziness, gait instability and syncope. Patient reports that 8 days ago she had an episode where she felt very dizzy and lightheaded and next thing she remembers is that she woke up on the ground. She denies having any chest pain or shortness of breath prior to that incident. States that throughout the last week she has been having episodes of feeling very unsteady on her feet. States that she also intermittently is having intermittent double vision. She states that over the last few days she has been having a persistent headache on the right temporal region. She denies any numbness or tingling or significant weakness in her extremities, but does report that her bilateral lower extremities "feel heavy." She states that for the last week she has been having episodes in which she seems to lose her footing and stumble and be off balance. She denies any chest pain or shortness of breath. She is on Eliquis for history of A-fib. She denies taking Plavix. She states that she woke up at 730 this a.m. feeling normal but then has since developed a right sided headache and is again very unsteady on her feet. ROS: as above PHYSICAL EXAM: Constitutional: Patient appears in no acute distress. HENT: Head: Normocephalic and atraumatic. Eyes: EOMI, PERRL Mouth/Throat: Mucous membranes moist. Neck: Trachea midline. Neck supple. Cardiovascular: RRR, No murmurs, rubs or gallops. Intact distal pulses. Pulmonary/Chest: No respiratory distress. Breath sounds clear and equal bilaterally. No wheezes or rales. Abdominal: Abdomen soft, no tenderness, rebound or guarding. Musculoskeletal: No edema, tenderness or deformity noted. Skin: Warm and dry. No rash, erythema, pallor or cyanosis Psychiatric: Appropriate mood and affect for situation. Neurological: Alert and keenly responsive. Facies symmetric. Able to raise eyebrows, close eyes, smile, puff mouth, stick out tongue, move tongue left and right and raise palate symmetrically. Able to shrug shoulders. PERRLA. SILT to forehead below eye and at jawline. Can hear soft noise bilaterally. Good finger to nose. Strength 5/5 in bilateral upper and lower extremities. SILT throughout bilateral upper and lower extremities. MDM: - Vitals signs stable. - History obtained via patient. History as above. - Chronic conditions affecting care: paroxysmal Afib; GERD - Differential diagnoses include, but are not limited to: Dysrhythmia; electrolyte abnormality; ACS; CVA; intracranial hemorrhage - Order placed for continuous cardiac monitoring. At this time, monitor showed rate of 64 bpm with normal sinus rhythm, per my interpretation. - External medical records reviewed. Cardiology visit note dated 01/18/2024 was reviewed. Patient follows in the clinic for paroxysmal A-fib. She is on anticoagulation with Eliquis. - EKG image interpreted by myself showed normal sinus rhythm. Rate 66 bpm. QT 442. No acute ischemic changes. - Laboratory workup interpreted by myself showed normal WBC; normal PT/INR; stable electrolytes; normal troponin - CT head wo contrast imaging reviewed by myself today for acute intracranial hemorrhage, per my interpretation. - CTA head/neck ordered, given patient's complaints of vision changes and gait instability. - On reassessment, the patient is still complaining of feeling dizzy and having generalized weakness. She reports she had gotten up to go to the bathroom and felt very unsteady on her feet and like her lower extremities were weak. Patient is on Eliquis and denies any missed doses. However, cannot rule out possible posterior circulation stroke at this time. Do feel that the patient requires further workup on the inpatient setting. - Discussion was had with comp field case manager about patient's case and need for admission - Hospitalist consulted for admission - Patient admitted to [facility] Hospitalist service for further evaluation and management. ASSESSMENT AND PLAN: Diagnosis: syncope and collapse; abnormal gait; dizziness Plan: admit Past Med/Surg History Problem List (Updated 01/21/25 @ 17:31 by Luann Butcher MD) Abnormal gait (Acute) Dizziness (Acute) Syncope and collapse (Acute) Peripheral neuropathy (Acute) IBS (irritable bowel syndrome) Heart disease (Chronic) GERD (gastroesophageal reflux disease) (Chronic) Former smoker (Acute) Atrial fibrillation (Chronic) follows with Dr. Camarillo Anxiety Prediabetes Medical History Anxiety Atrial fibrillation follows with Dr. Camarillo Breast cancer, left 2006--sx, chemo, radiation Depression Former smoker GERD (gastroesophageal reflux disease) Heart disease IBS (irritable bowel syndrome) Migraine Mitral valve prolapse Osteoarthritis Peripheral neuropathy Surgical History (Updated 09/18/19 @ 10:50 by Katrina Byrne) H/O left mastectomy History of left breast biopsy malignant History of dilatation and curettage History of arthroscopy of right knee meniscus repair History of bilateral tubal ligation History of appendectomy History of colonoscopy History of esophagogastroduodenoscopy (EGD) History of lumpectomy of left breast breast cancer History of tooth extraction wisdom tooth Family History (Updated 09/18/19 @ 10:52 by Katrina Byrne) Father Depression Alcohol abuse Mother Breast cancer Social History Smoking Status: Never smoker Tobacco Type: Cigarettes Age Started Using Tobacco: 17; Age Quit Using Tobacco: 21; packs per day: 0.5; Second Hand Exposure: Yes (mother smoked); Do You Dip or Chew Tobacco: No; Hx Alcohol Use: Yes Alcohol type: wine Hx Substance Use: No Preferred Language: Serbian Communication Ability: Effective Visual Impairment: Limited Hearing Ability: Normal Hospital Insurance Representative Required: No Beliefs That Will Affect Care: None marital status: Current Living Situation: Spouse and Family Current Living Situation Comment: Lives with and son current occupational status: employed Feels Safe at Home: Yes Childhood Exposure to Second-Hand Smoke: Yes Diet: regular caffeine: Yes Dental Care, Regularly: Yes Physical Activity Frequency: 5-6 Times per Week Seatbelt Use: always Sunscreen Use: Yes Assistive Devices: Glasses Allergies Allergies Allergy/AdvReac Type Severity Reaction Status Date / Time buspirone Allergy Intermediate increase Verified 01/18/24 14:10 heart rate venlafaxine AdvReac Intermediate increase Verified 01/18/24 14:10 blood pressure codeine AdvReac Mild MAKES Verified 01/18/24 14:10 NAUSEA bupropion [From Wellbutrin] AdvReac Unknown Unknown Verified 01/18/24 14:10 fluoxetine [From Prozac] AdvReac Unknown Unknown Verified 01/18/24 14:10 Home Meds Home Medications Medication Instructions Recorded Confirmed psyllium husk 0.52 gram capsule 3 cap PO HS 05/11/18 01/21/25 (Fiber-Caps (psyllium husk)) lorazepam 0.5 mg tablet 0.5 mg PO BID PRN anxiety 01/26/21 01/21/25 vitamin B complex 1 tab PO DAILY 01/18/24 01/21/25 citalopram 40 mg tablet 40 mg PO QAM 01/21/25 01/21/25 fluocinolone 0.01 % topical 1 applic topical AMHS 01/21/25 01/21/25 solution pantoprazole 40 mg tablet,delayed 40 mg PO HS 01/21/25 01/21/25 release Previous Rx's Medication Instructions Recorded apixaban 5 mg tablet (Eliquis) 5 mg PO BID #180 tabs 06/07/24 metoprolol succinate 50 mg 50 mg PO DAILY #90 tabs 12/11/24 tablet,extended release 24 hr Results & Data (ED) Vital Signs Vital Signs - 24 hr 01/21/25 15:15 01/21/25 15:24 01/21/25 16:02 Temperature 36.6 C Temperature Source Temporal Artery Scan Pulse Rate 66 62 Pulse Rate [Apical] 63 Pulse Rate from SpO2 Sensor Respiratory Rate 18 16 Respiratory Effort / Characteristics Non-Labored Spontaneous Non-Labored Spontaneous Respiratory Depth Normal Normal Blood Pressure 123/78 Blood Pressure [Right Arm] Blood Pressure Mean 93 Blood Pressure Mean [Right Arm] Pulse Oximetry 100 98 Oxygen Delivery Method Room Air Room Air Sepsis Recent Fever Within 48 Hours No Sepsis New/Unexplained Change in Mental Status No Sepsis Action Taken by Nursing No Action Required 01/21/25 16:50 01/21/25 17:00 01/21/25 18:06 Temperature Temperature Source Pulse Rate 63 56 L Pulse Rate [Apical] 59 L Pulse Rate from SpO2 Sensor 64 54 L Respiratory Rate 16 13 21 Respiratory Effort / Characteristics Respiratory Depth Blood Pressure 157/85 H 152/90 H Blood Pressure [Right Arm] 138/83 Blood Pressure Mean 109 110 Blood Pressure Mean [Right Arm] 101 Pulse Oximetry 100 99 96 Oxygen Delivery Method Room Air Room Air Room Air Sepsis Recent Fever Within 48 Hours Sepsis New/Unexplained Change in Mental Status Sepsis Action Taken by Nursing Laboratory Data 01/21/25 15:30 01/21/25 15:30 Lab Results 01/21/25 Range/Units 15:30 WBC 8.20 (4.8-10.8) K/ul RBC 4.72 (4.20-5.40) M/uL Hgb 14.6 (12.0-16.0) g/dl Hct 41.9 (37.0-47.0) % MCV 88.8 (80.0-100.0) fL MCH 30.9 (25.0-34.0) pg MCHC 34.8 (32.0-36.0) g/dL RDW Std Deviation 41.0 (36.4-46.3) fL RDW Coeff of Sridevi 12.5 (11.5-14.5) % Plt Count 208 (130-400) K/uL MPV 10.0 (9.4-12.4) fL Immature Gran % (Auto) 0.4 % Neut % (Auto) 58.2 % Lymph % (Auto) 33.3 % [place] % (Auto) 6.1 % Eos % (Auto) 1.1 % Baso % (Auto) 0.9 % Neut # (Auto) 4.78 (1.40-6.50) K/uL Lymph # (Auto) 2.73 (1.20-3.40) K/uL Lincoln # (Auto) 0.50 (0.11-0.59) K/uL Eos # (Auto) 0.09 (0.00-0.50) K/uL Baso # (Auto) 0.07 (0.00-0.20) K/uL Immature Gran # (Auto) 0.03 (0.01-0.20) K/uL PT 10.8 (9.0-12.0) Seconds INR 1.0 (0.9-1.1) Sodium 139 (136-145) mmol/L Potassium 4.0 (3.5-5.1) mmol/L Chloride 103 (98-107) mmol/L Carbon Dioxide 23 (21-32) mmol/L Anion Gap 13 H (3-11) BUN 15 (6-23) mg/dl Creatinine 0.98 (0.6-1.2) mg/dl Est Cr Clr Drug Dosing 53.5 ml/min eGFR 63.26 BUN/Creatinine Ratio 15.3 (10-20) Glucose 182 H (70-99(Fasting)) mg/dl Calcium 9.3 (8.6-10.3) mg/dl Total Bilirubin 0.4 (0.2-1.0) mg/dl AST 21 (13-39) U/L ALT 13 (7-52) U/L Alkaline Phosphatase 76 (34-104) U/L Troponin I High Sens 2.4 (0-14) pg/ml Total Protein 7.2 (6.0-8.3) gm/dl Albumin 3.9 (3.4-5.0) gm/dl Globulin 3.3 (2.5-4.0) gm/dl Albumin/Globulin Ratio 1.2 (0.9-2) Administered Medications Discontinued Medications Ioversol (Optiray 320 125ml) 115 ml IV ONCE ONE Stop: 01/21/25 16:39 Last Admin: 01/21/25 16:38 Dose: 115 ml Documented By: STACIA Discharge Plan Visit Data Chief Complaint: Vertigo Stated Complaint: VERTIGO ED Provider: Luann Butcher Discharge Problem: Syncope and collapse, Dizziness, Abnormal gait Condition: Fair Forms Stand Alone Forms: [facility] [employer] Prescriptions Prescriptions: No Action Eliquis 5 mg tablet 5 mg PO BID Qty: 180 3RF metoprolol succinate 50 mg tablet extended release 24 hr 50 mg PO DAILY Qty: 90 3RF vitamin B complex Tablet 1 tab PO DAILY psyllium husk [Fiber-Caps (psyllium husk)] 0.52 gram Capsule 3 cap PO HS lorazepam 0.5 mg tablet 0.5 mg PO BID PRN (Reason: anxiety) pantoprazole 40 mg tablet,delayed release (DR/EC) 40 mg PO HS citalopram 40 mg tablet 40 mg PO QAM fluocinolone 0.01 % solution 1 applic TOPICAL [facility]HS Rx Instructions: apply to scalp at dry skin patch Referrals Referrals: Debora Zheng MD [Primary Care Provider] -
[2025-01-21 15:50] LABS: Hematocrit (blood only) 41.9 % (37.0-47.0); Hemoglobin 14.6 g/dl (12.0-16.0); Immature Granulocytes # (auto) 0.03 K/uL (0.01-0.20); Immature Granulocytes % (auto) 0.4 %; Mean Corpuscular Hemoglobin 30.9 pg (25.0-34.0); Mean Corpuscular Volume 88.8 fL (80.0-100.0); Platelet Count 208 K/uL (130-400); RDW Standard Deviation 41.0 fL (36.4-46.3); Red Blood Count 4.72 M/uL (4.20-5.40); White Blood Count 8.20 K/ul (4.8-10.8)
[2025-01-21 16:10] LABS: Alanine Aminotransferase 13.0 U/L (7-52); Albumin Globulin Ratio 1.2 (0.9-2); Alkaline Phosphatase 76.0 U/L (34-104); Anion Gap 13.0 (3-11); Bilirubin,Total 0.4 mg/dl (0.2-1.0); Blood Urea Nitrogen 15.0 mg/dl (6-23); Calcium 9.3 mg/dl (8.6-10.3); Carbon Dioxide 23.0 mmol/L (21-32); Chloride 103.0 mmol/L (98-107); Creatinine Clr Calc Pharmacy 53.5 ml/min; Globulin 3.3 gm/dl (2.5-4.0); Glucose 182.0 mg/dl (70-99(Fasting)); Potassium 4.0 mmol/L (3.5-5.1); Sodium 139.0 mmol/L (136-145); Total Protein 7.2 gm/dl (6.0-8.3)
[2025-01-21 16:23] LABS: INR 1.0 (0.9-1.1); Prothrombin Time 10.8 Seconds (9.0-12.0)
[2025-01-21] MEDS: OPTIRAY 320 125ml IV ONE (16:38)
--- NOTE | 2025-01-21 18:37 | CT Scan Report ---
Exam: CTA head/brain without contrast. Reason for exam: Vertigo and vision changes with follow-up. Struck head on the ground. Patient's takes Plavix. Headaches with both legs heavy Previous studies: CT head 01/26/2021 FINDINGS: Mild diffuse atrophy and scattered symmetric lucencies stable in the dependent matter when compared to the previous study. Ventricles prominent but stable. At this time no mass, hemorrhage or edema is evident. No acute process seen in the bony calvarium. Visualized mastoids and paranasal sinuses remain clear. IMPRESSION: 1. Negative for acute intracranial process. 2. Stable mild atrophy and chronic ischemic angiopathy deep white matter. Electronically signed by Simon Vaca 01-21-2025 6:37 PM
--- NOTE | 2025-01-21 18:41 | CT Scan Report ---
Exam: CT angiogram head with contrast. Reason for exam: Trauma, patient fell. Stumbling with right temporal headache. Previous studies: Unenhanced head CT 01/21/2025. FINDINGS: Intact blood flow is seen in the distal internal carotid arteries bilaterally without significant stenosis or occlusion. Intact flow is seen in the arteries about the [place] of [place]. Intact blood flow is seen in the distal vertebral arteries bilaterally with the left being moderately larger than the right to form the basilar which is somewhat diminutive. Intact flow in the posterior circulation is seen. IMPRESSION: Essentially normal study. No significant intracranial stenosis, occlusion or aneurysm Electronically signed by Simon Vaca 01-21-2025 6:41 PM
--- NOTE | 2025-01-21 18:45 | History & Physical Report ---
Date of Service January 21, 2025 Assessment & Plan (1) Post-concussion syndrome: (2) Vasovagal syncope: (3) Paroxysmal atrial fibrillation: (4) Mitral valve prolapse: (5) Anxiety: (6) Chronic migraine with aura, not intractable: Plan Patient 69-year-old female presents to the emergency room with some dizziness, intermittently blurred vision and intermittent headache after sustaining a syncopal event 1 week ago where she admittedly hit her head. Patient's history is highly suspicious for vasovagal syncope with a concussion and now having postconcussive syndrome type symptoms. Observe in the hospital in the monitored setting to rule out arrhythmia Update echocardiogram MRI of the brain to rule out other etiology for her symptoms Continue outpatient medications including anticoagulation Tylenol as needed for headache and pain Naprosyn as needed for headache and pain Physical therapy evaluation Anticipate if echocardiogram and MRI unremarkable patient will be able be discharged home to continue to recuperate at home with slowly advancing her activities back to her baseline as her symptoms continuing to improve. History of Present Illness Chief Complaint: Some dizziness, visual changes, passed out 1 week ago Primary Care Provider: Debora Zheng MD Patient 69-year-old female who presents to the emergency room with above complaints that have been ongoing for the past week. In the emergency room workup was unremarkable For acute findings but due to her symptoms referred to for further evaluation. Time of my evaluation patient is feeling okay. She is somewhat worried and concerned about the symptoms she is expend experiencing this week. Patient reports that last Wednesday evening, 01/14/2025, she was babysitting her grandchildren she was in the kitchen preparing some snacks for them while they watched a movie. She suddenly became extremely flushed and had a hot feeling all of her body. She felt as though she had some spots before her vision and some zigzag lines as well. Next thing she knew she was on the floor waking up. And had assumed that she passed out. She is certain that she hit her head on the left side as well as significant bruise to her left shoulder pain in the left shoulder has been improving. She was able to care for herself the rest that evening. Her grandchildren were watching a movie. Her came home and was able to get the grandchildren back to their parents. Since then this week she has limited her activity. She just felt a little off. Some dizziness some headache. She has not walked the dogs as she usually does and does not do her outside activities that she usually does. Last evening she said she turned her head a couple times and acutely got double vision for just a few seconds and that improved. Finally decided to seek attention in the emergency room today after she had some lightheadedness and feeling overall weakness while walking around outside this afternoon. She denies any fever or chills. She denies any palpitations or chest pain. No shortness of breath. No cough or cold symptoms. No new problems with her bowels or bladder. Has been eating and drinking well. She states that she does not think that she was de high did or any significant exertion last week. This been no changes in her medications. S he does states that she has a history of migraines and has been on beta-yuliana for that in the past. Has had issues with low when she was on the beta-yuliana in the past. Currently she is on metoprolol for a remote episode of paroxysmal atrial fibrillation. She has been consistent with her and compliant with her medications. She states that she did have a little bit of a headache/migraine was resolved with a dose of Tylenol. Otherwise she has not [id number] for symptoms that she has been experiencing this week. She has never had a previous tree of syncope. She states when she has had her paroxysms of atrial fibrillation in the past she had palpitations and can tell that her heart rate was extremely high. She did not experience that this past Wednesday night. Allergies Allergy/AdvReac Type Severity Reaction Status Date / Time buspirone Allergy Intermediate increase Verified 01/18/24 14:10 heart rate venlafaxine AdvReac Intermediate increase Verified 01/18/24 14:10 blood pressure codeine AdvReac Mild MAKES Verified 01/18/24 14:10 NAUSEA bupropion [From Wellbutrin] AdvReac Unknown Unknown Verified 01/18/24 14:10 fluoxetine [From Prozac] AdvReac Unknown Unknown Verified 01/18/24 14:10 Home Medications Medication Instructions Recorded Confirmed Type psyllium husk 0.52 gram capsule 3 cap PO HS 05/11/18 01/21/25 History (Fiber-Caps (psyllium husk)) lorazepam 0.5 mg tablet 0.5 mg PO BID PRN anxiety 01/26/21 01/21/25 History vitamin B complex 1 tab PO DAILY 01/18/24 01/21/25 History apixaban 5 mg tablet (Eliquis) 5 mg PO BID #180 tabs 06/07/24 01/21/25 Rx metoprolol succinate 50 mg 50 mg PO DAILY #90 tabs 12/11/24 01/21/25 Rx tablet,extended release 24 hr citalopram 40 mg tablet 40 mg PO QAM 01/21/25 01/21/25 History fluocinolone 0.01 % topical 1 applic topical AMHS 01/21/25 01/21/25 History solution pantoprazole 40 mg tablet,delayed 40 mg PO HS 01/21/25 01/21/25 History release Past Med/Surg History Problem List (Updated 01/21/25 @ 18:50 by Jan Randhawa DO) Chronic migraine with aura, not intractable Vasovagal syncope Post-concussion syndrome Abnormal gait (Acute) Dizziness (Acute) Syncope and collapse (Acute) Peripheral neuropathy (Acute) IBS (irritable bowel syndrome) Heart disease (Chronic) GERD (gastroesophageal reflux disease) (Chronic) Former smoker (Acute) Atrial fibrillation (Chronic) follows with Dr. Camarillo Anxiety Prediabetes Medical History Anxiety Atrial fibrillation follows with Dr. Camarillo Breast cancer, left 2006--sx, chemo, radiation Depression Former smoker GERD (gastroesophageal reflux disease) Heart disease IBS (irritable bowel syndrome) Migraine Mitral valve prolapse Osteoarthritis Peripheral neuropathy Surgical History (Updated 09/18/19 @ 10:50 by Katrina Byrne) H/O left mastectomy History of left breast biopsy malignant History of dilatation and curettage History of arthroscopy of right knee meniscus repair History of bilateral tubal ligation History of appendectomy History of colonoscopy History of esophagogastroduodenoscopy (EGD) History of lumpectomy of left breast breast cancer History of tooth extraction wisdom tooth Family History (Updated 09/18/19 @ 10:52 by Katrina Byrne) Father Depression Alcohol abuse Mother Breast cancer Social History Smoking Status: Never smoker Tobacco Type: Cigarettes Age Started Using Tobacco: 17; Age Quit Using Tobacco: 21; packs per day: 0.5; Second Hand Exposure: Yes (mother smoked); Do You Dip or Chew Tobacco: No; Hx Alcohol Use: Yes Alcohol type: wine Hx Substance Use: No Preferred Language: Angolan Communication Ability: Effective Visual Impairment: Limited Hearing Ability: Normal Surface Supervisor Required: No Beliefs That Will Affect Care: None marital status: Current Living Situation: Spouse and Family Current Living Situation Comment: Lives with and son current occupational status: employed Feels Safe at Home: Yes Childhood Exposure to Second-Hand Smoke: Yes Diet: regular caffeine: Yes Dental Care, Regularly: Yes Physical Activity Frequency: 5-6 Times per Week Seatbelt Use: always Sunscreen Use: Yes Assistive Devices: Glasses Review of Systems Review of Systems: Pertinent positive and negative review of systems as mentioned in the HPI Physical Exam Physical Exam: Constitutional: Alert, nontoxic HEENT: Mucous membranes moist. Sclera clear Neck: Soft, no adenopathy Lungs: Clear to auscultation, decreased, no wheezes rales or rhonchi CV: S1-S2, regular, no significant murmur Abdomen: Soft, nontender, nondistended Extremities: No significant edema Musculoskeletal: Mild tenderness to range of motion testing left shoulder, cervical spine paravertebral muscular tenderness, ropiness and somatic dysfunction Neuro: No focal deficits Psych: Cooperative, normal mood Results & Data Results & Data Vital Signs (Past 12 Hours) Vital Signs Temp Pulse Pulse Resp BP BP Pulse Ox 01/21/25 18:06 56 L 21 152/90 H 96 01/21/25 17:00 63 13 157/85 H 99 01/21/25 16:50 59 L 16 138/83 100 01/21/25 16:02 63 16 98 01/21/25 15:24 62 01/21/25 15:15 36.6 C 66 18 123/78 100 O2 Del Method 01/21/25 18:06 Room Air 01/21/25 17:00 Room Air 01/21/25 16:50 Room Air 01/21/25 16:02 Room Air 01/21/25 15:24 01/21/25 15:15 Room Air Diagnostic Findings Reviewed imaging, laboratory and diagnostic studies. Pertinent findings as below. CT of the head was negative for acute findings, chronic white matter disease CTA of the head showed no large vessel occlusion Personally reviewed EKG sinus rhythm no acute ST-T wave changes CBC stable BMP shows stable electrolytes Creatinine 0.98 LFTs within normal limits Troponin 2.4 Code Status & VTE Plan VTE Prophylaxis Plan VTE Prophylaxis will be ordered: No Reason for no VTE drug order: Contraindicated
--- NOTE | 2025-01-21 19:09 | CT Scan Report ---
Exam: CT angiogram neck with contrast. Reason for exam: Episodes of vertigo. Previous studies: 10/16/2015 FINDINGS: Three-vessel origin seen from the aortic arch without evidence of significant stenosis. The right carotid bifurcation shows mild scattered plaquing without any hemodynamically significant stenosis. The left carotid bifurcation shows mild plaquing without any significant stenosis. Intact vertebral artery flow is seen bilaterally with the left. Being mildly larger than the right. No significant stenosis or occlusion is seen to the level of the vertebral. IMPRESSION: Mild plaquing at the carotid bifurcations bilaterally. No hemodynamically significant stenosis found on either side. Electronically signed by Simon Vaca 01-21-2025 7:06 PM
[2025-01-21] MEDS ORDERED: MELATONIN 3 MG TAB PO PRN (20:52)
[2025-01-21] MEDS ORDERED: NAPROXEN 250 MG TAB PO PRN (20:52)
[2025-01-21] MEDS ORDERED: ONDANSETRON INJ 2 MG/ML 2 ML VIAL IV PRN (20:52)
[2025-01-21] MEDS ORDERED: FLUOCINOLONE 0.01% TOP SCH (21:00)
[2025-01-21] MEDS: APIXABAN 5 MG TABLET PO SCH (21:07)
[2025-01-21] MEDS: PSYLLIUM HUSK 4GM PACKET PO SCH (21:08)
[2025-01-21] MEDS: LORazepam 0.5 MG TAB PO PRN (21:11)
[2025-01-22] MEDS: LORazepam 0.5 MG TAB PO STA (00:53)
[2025-01-22] MEDS: CITALOPRAM 40 MG TAB PO SCH (08:20)
[2025-01-22] MEDS: METOPROLOL SUCC 50MG EXT REL TAB PO SCH (08:21)
[2025-01-22] MEDS: VITAMIN B COMPLEX TAB PO SCH (08:22)
[2025-01-22] MEDS: GADOBUTROL 65ML VIAL IV ONE (09:51)
[2025-01-22] MEDS: ACETAMINOPHEN 325 MG TAB PO PRN (10:47)
[2025-01-22 11:22] VITALS: BP 113/73; RESP 18; TEMP 97.7; O2SAT 95
--- NOTE | 2025-01-22 12:10 | XCELERA ---
[id number] [id number]
--- NOTE | 2025-01-22 12:30 | Electrocardiogram Report ---
Test Reason : Blood Pressure : */* mmHG Vent. Rate : 66 BPM Atrial Rate : 66 BPM P-R Int : 156 ms QRS Dur : 80 ms QT Int : 442 ms P-R-T Axes : 46 50 15 degrees QTcB Int : 463 ms Normal sinus rhythm Nonspecific ST and T wave abnormality Abnormal ECG When compared with ECG of 08-Sep-2022 11:45, No significant change was found Confirmed by Gonzalez Goode ([id number]) on 01/22/2025 12:30:42 PM Referred By: REFERRED SELF Confirmed By: Gonzalez Goode
--- NOTE | 2025-01-22 13:24 | Magnetic Resonance Report ---
MRI OF THE BRAIN COMBO CLINICAL HISTORY: Dizziness. Syncope. Fall. COMPARISON STUDY: Head CT and CTA of the head January 21, 2025. TECHNIQUE: MRI of the brain was performed utilizing various T1 and T2-weighted sequences in the axial , sagittal, and coronal planes. Contrast-enhanced sequences were acquired following the administratio n of 7 cc of Gadavist. Thin cut T1 post contrast imaging was performed. FINDINGS: There are no foci of restricted diffusion to suggest acute infarct. No acute intracranial h emorrhage, midline shift or mass effect is present. Mild dilatation of the lateral ventricles is due to central atrophy. This is unchanged since CT of January 26, 2021. 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 There is no intracranial mass or pathologic enhancement. White matter T2 hyperintens e foci suggest small vessel disease. There are no calvarial lesions. Small to moderate amount of flui d within the right mastoid air cells is present. There is trace fluid within the left mastoid air miguel ls. IMPRESSION: 1. No acute intracranial findings. 2. No intracranial mass or pathologic enhancement. 3. Small to moderate right and trace left mastoid effusions. ACT 112: Negative or not required by law. Electronically signed by: Bon Sr M.D. 01/22/2025 1:22 PM
--- NOTE | 2025-01-22 13:40 | Discharge Summary ---
Discharge Summary Date of Service January 22, 2025 Principal Dx & Hospital Course #1 = Principal Diagnosis (1) Post-concussion syndrome: (2) Vasovagal syncope: (3) Paroxysmal atrial fibrillation: (4) Mitral valve prolapse: (5) Anxiety: (6) Chronic migraine with aura, not intractable: Plan Patient 69-year-old female who presented to the emergency room 1 week after she had a syncopal event at home with significant head trauma. In the emergency room head CT was negative for acute bleed, however, patient was referred to our service due to the fact the patient states she had some issues with balance and vision. Patient was served in the hospital. There was no significant arrhythmias on telemetry monitoring. Vital signs are stable. MRI of the brain showed no acute abnormalities. Echocardiogram was performed and was within normal ranges. Her symptoms have steadily improving. She had no recurrent visual changes while here in the hospital. She is seen by therapies and was able to do well and recommend that she could return home. Her history and symptoms are highly consistent with a vasovagal syncope and subsequent concussion with her fall and postconcussive syndromes. She can return home to recover at home slowly increasing her activities as tolerated and follow-up with her PCP Notes For Next Care Provider Continue routine care Medication Changes From Visit None Admission HPI Per Admitting Provider Patient 69-year-old female who presents to the emergency room with above complaints that have been ongoing for the past week. In the emergency room workup was unremarkable For acute findings but due to her symptoms referred to for further evaluation. Time of my evaluation patient is feeling okay. She is somewhat worried and concerned about the symptoms she is expend experiencing this week. Patient reports that last Wednesday evening, 01/14/2025, she was babysitting her grandchildren she was in the kitchen preparing some snacks for them while they watched a movie. She suddenly became extremely flushed and had a hot feeling all of her body. She felt as though she had some spots before her vision and some zigzag lines as well. Next thing she knew she was on the floor waking up. And had assumed that she passed out. She is certain that she hit her head on the left side as well as significant bruise to her left shoulder pain in the left shoulder has been improving. She was able to care for herself the rest that evening. Her grandchildren were watching a movie. Her came home and was able to get the grandchildren back to their parents. Since then this week she has limited her activity. She just felt a little off. Some dizziness some headache. She has not walked the dogs as she usually does and does not do her outside activities that she usually does. Last evening she said she turned her head a couple times and acutely got double vision for just a few seconds and that improved. Finally decided to seek attention in the emergency room today after she had some lightheadedness and feeling overall weakness while walking around outside this afternoon. She denies any fever or chills. She denies any palpitations or chest pain. No shortness of breath. No cough or cold symptoms. No new problems with her bowels or bladder. Has been eating and drinking well. She states that she does not think that she was de high did or any significant exertion last week. This been no changes in her medications. She does states that she has a history of migraines and has been on beta-yuliana for that in the past. Has had issues with low when she was on the beta-yuliana in the past. Currently she is on metoprolol for a remote episode of paroxysmal atrial fibrillation. She has been consistent with her and compliant with her medications. She states that she did have a little bit of a headache/migraine was resolved with a dose of Tylenol. Otherwise she has not [id number] for symptoms that she has been experiencing this week. She has never had a previous tree of syncope. She states when she has had her paroxysms of atrial fibrillation in the past she had palpitations and can tell that her heart rate was extremely high. She did not experience that this past Wednesday night. Admission Exam Per Admitting Provider See H&P Discharge Exam Constitutional: Alert HEENT: Mucous membranes moist. Lungs: Clear to auscultation, decreased, no wheezes rales or rhonchi CV: S1-S2, regular Abdomen: Soft, nontender, nondistended Extremities: No significant edema Neuro: No focal deficits Psych: Cooperative, normal mood Updated Medication List Medication Instructions Recorded Confirmed Type psyllium husk 0.52 gram capsule 3 cap PO HS 05/11/18 01/21/25 History (Fiber-Caps (psyllium husk)) lorazepam 0.5 mg tablet 0.5 mg PO BID PRN anxiety 01/26/21 01/21/25 History vitamin B complex 1 tab PO DAILY 01/18/24 01/21/25 History apixaban 5 mg tablet (Eliquis) 5 mg PO BID #180 tabs 06/07/24 01/21/25 Rx metoprolol succinate 50 mg 50 mg PO DAILY #90 tabs 12/11/24 01/21/25 Rx tablet,extended release 24 hr citalopram 40 mg tablet 40 mg PO QAM 01/21/25 01/21/25 History fluocinolone 0.01 % topical 1 applic topical [facility] 01/21/25 01/21/25 History solution pantoprazole 40 mg tablet,delayed 40 mg PO HS 01/21/25 01/21/25 History release Hospital Stay Data Consultations 01/21/25 18:20 ED Decision to Admit Stat Diagnostic Imagining Performed 01/21/25 15:32 CT head/brain wo con Stat CTA head w con [CT angio head w con] Stat CTA neck with con [CT angio neck with con] Stat 01/22/25 06:00 MR brain wo/w con Routine Reviewed imaging, laboratory and diagnostic studies. Pertinent findings as below. MRI of the brain showed no acute abnormalities Echocardiogram shows ejection fraction 60 to 65% no significant valvular pathology no significant change from previous No new laboratory studies from admission Discharge Instructions Given to Patient (Per Discharging Provider) Slowly increase your activity as tolerated Minimize screen time Can use [id number] ibuprofen as needed for headache Total Time Total Time Spent Total Time Spent (In Minutes): 27
[2025-01-22 14:16] VITALS: PULSE 58
== END 2025-01-22 15:17 | disposition home or self-care (01) ==
LOC: ED 15:08 → 2N 15:08